=== PATIENT | female | born 1965 | race Caucasian/White ===

== ENCOUNTER 2018-07-07 10:25 | Emergency (ER) | payer OTHER ==
[2018-07-07 10:35] VITALS: TEMP 97.8; BMI 22.3
[2018-07-07] MEDS ORDERED: IBUPROFEN 600 MG TABLET (FP) PO ONE ×2 (10:41→10:44)
--- NOTE | 2018-07-07 11:02 | PDOC ---
History of Present Illness - General Chief Complaint: Injury Stated Complaint: FELL Time Seen by Provider: 07/07/18 10:32 History Source: Patient, Spouse ( at bedside.) Exam Limitations: No Limitations - History of Present Illness Initial Comments: HPI: 52 y/o female presenting to [facility] complaining of pain and difficulty moving the right shoulder forward after falling and striking it on the [place] shortly before arrival. Pt states she tripped and hit the area on a tree root. No LOC. Did not strike her head or neck. Pain radiates along the anterior portion of the arm. Is able to flex and extend the elbow and wrists. No bruising or bleeding. PCP: Dr. Maldonado Medical Hx: - Pt denies PMH. - Is taking estrogen and progesterone hormone replacements. Surgical Hx: - Pt denies PSH. Review of Systems: In addition to that documented in the HPI above, the additional ROS was obtained : Constitutional: Denies fevers or chills Head: Denies vision changes ENMT: Denies sore throat CV: Denies chest pain Resp: Denies SOB GI: Denies vomiting or diarrhea : Denies painful urination MSK: Per HPI Skin: Denies new rashes Neuro: Denies new numbness or tingling or weakness Endocrine: Denies polyuria Heme: Denies bleeding or bruising Physical Examination: Constitutional: Well-developed, well-nourished adult in no acute distress or obvious discomfort. Found standing upright next to hospital bed. Alert and oriented x4. Answered all questions appropriately and completely. Speech was non -labored, non-pressured. Head: Normocephalic. No obvious external signs of trauma. Cardiovascular / Chest: Regular rate and regular rhythm. No murmur, rubs, clicks , or gallops. Peripheral pulses: radial pulses full. No anterior chest wall tenderness. Respiratory: Breathing unlabored. Equal chest rise and fall. Clear to auscultation bilaterally. No stridor, no wheezing, no rhonchi. Neuro: Alert and oriented. Moving all four extremities spontaneously. MSK / Skin: Diffuse tenderness to right shoulder made worse by internal flexion. No obvious bony deformity to clavicle or AC joint; symmetrical when compared to left. Good active and passive ROM at elbow and wrists. [place] [employer] strength 5/5. No bruising or bleeding. Psych: Affect: tearful. Mood: normal. Procedures: Procedural Sedation / Shoulder Reduction PROCEDURE NOTE: Procedural Sedation PROCEDURE FLIGHT PARAMEDIC: Sourav Alford M.D. PGY1 Attending: Dr. Corona Indications: Anterior shoulder dislocation reduction Bly Protocol: a time out was performed and the correct patient and site were verified Consent: The risks and benefits of monitored anesthesia care, including the risk of aspiration, deep sedation requiring airway management including possible intubation, nausea/vomiting and the risks of not performing the procedure, including severe pain and inability to complete the procedure, were all discussed with the patient and . Pt requested the sign the consent form because she is right handed. The alternatives of performing the procedure, including local anesthesia and IV analgesia, also discussed. The patient has a ride home available. ASA Class: 1 Mallampati Score:1 Pre-anesthesia evaluation, including history, exam, and informed consent is documented in the note above. Monitoring: Continuous monitoring of heart rate, respiratory rate, pulse oximetry and ETCO2. Supplemental oxygen prior to and during procedure via nasal cannula. Resuscitation equipment available at the bedside during sedation. The patient received Ketamine and Propofol. Dosages were recorded on the sedation form. The patient was recovered from the sedation without complication or incident. Patient returned to pre-sedation level of awareness. The monitoring was discontinued at this time. Post-anesthesia evaluation: Respiratory function, cardiovascular function, and mental status did return to pre-anesthetic state. Pain was controlled. MDM: *Reviewed vital signs, nursing notes, and prior visit documentation (if available). 52 y/o female presenting with R shoulder pain and difficulty with internal rotation after falling while running. Vitals unremarkable for hypotension or tachycardia. Physical exam as described above. Suspect likely muscle strain versus AC dislocation. Low suspicion for fracture. Will obtain plain film to eval further. Ordered Motrin and Percocet for pain relief. Plain film revealed right anterior humeral head dislocation. No evidence of gross fracture. Pt consented for procedural sedation. Will use Ketamine and Propofol. Post-reduction film obtained and revealed correction of dislocation. No obvious fractures noted. Arm placed in sling. Ortho referral provided. Answered all questions. Provided return precautions. Pt expressed verbal understanding and agreement with plan to discharge home with outpatient follow up. Sourav Alford M.D., PGY1 Emergency Medicine Resident Past History - Past Medical History Allergies/Adverse Reactions: Allergies Allergy/AdvReac Type Severity Reaction Status Date / Time azithromycin [From Zithromax] Allergy Verified 07/07/18 10:32 Home Medications: Ambulatory Orders No Home Medications 0 dose .ROUTE UTDICT 10/16/12 COPD: No Other medical history: PT DENIES - Suicide/Smoking/Psychosocial Hx Smoking Status: No Smoking History: Never smoked Number of Cigarettes Smoked Daily: 0 Hx Alcohol Use: No Drug/Substance Use Hx: No *Physical Exam - Vital Signs Last Vital Signs Temp Pulse Resp BP Pulse Ox 97.8 F 62 18 117/76 100 07/07/18 10:27 07/07/18 10:27 07/07/18 10:27 07/07/18 10:27 07/07/18 10:27 ED Treatment Course - RADIOLOGY Radiology Studies Ordered: Category Date Time Status CLAVICLE-RIGHT SIDE [RAD] Stat Radiology 07/07/18 10:42 Ordered SHOULDER-RIGHT [RAD] Stat Radiology 07/07/18 10:42 Ordered - Medications Given in the ED: ED Medications Discontinued Medications Generic Name Dose Route Start Last Admin Trade Name Freq PRN Reason Stop Dose Admin Ibuprofen 600 mg 07/07/18 10:41 07/07/18 10:52 Motrin - PO 07/07/18 10:42 600 mg ONCE ONE Administration Oxycodone/Acetaminophen 1 combo 07/07/18 10:42 07/07/18 10:52 Percocet 5/325 - PO 07/07/18 10:43 1 combo ONCE ONE Administration *DC/Admit/Observation/Transfer Diagnosis at time of Disposition: Anterior dislocation of right humerus, initial encounter - Discharge Dispostion Disposition: HOME Condition at time of disposition: Good Decision to Admit order: No - Referrals Referrals: Ne Maldonado [Primary Care Provider] - Thiago Briscoe DO [Staff Physician] - - Patient Instructions Printed Discharge Instructions: DI for Shoulder Dislocation, DI for Moderate Sedation Additional Instructions: You were seen today for right shoulder pain. The xray showed you dislocated your shoulder. It was manually reduced. Keep it in the sling provided for the next week. You can take over the counter Tylenol or Advil as needed for pain. Take as directed on the package insert. Do not exceed the recommended dosage. If needed , you can alternate Tylenol and Advil every two hours, but do not exceed the maximum 24 hour dose. Follow up with an orthopedic doctor when the next week. I have placed a referral for you to see Dr. Briscoe. You will need to call to make an appointment. The number is included in this packet. A copy of todays results are attached to this packet. Take it to the appointment so your doctor can review them. Go to the nearest emergency department if your condition worsens or you feel like you need additional emergency evaluation. Print Language: LAO - Post Discharge Activity
--- NOTE | 2018-07-07 11:16 | PDOC ---
Attending Attestation - Resident Resident Name: Sourav Alford - ED Attending Attestation I have performed the following: I have examined & evaluated the patient, The case was reviewed & discussed with the resident, I agree w/resident's findings & plan, Exceptions are as noted - HPI HPI: 52 yo F presents s/p fall while running on a trail. Fall was mechanical. Landed on her right shoulder. Now with severe shoulder pain and unable to move the upper arm/shoulder. No other injuries. - Physicial Exam PE: GENERAL: Awake, alert, and fully oriented, in no acute distress HEAD: No signs of trauma EYES: PERRLA, EOMI, sclera anicteric, conjunctiva clear ENT: Auricles normal inspection, hearing grossly normal, nares patent, oropharynx clear without exudates. Moist mucosa NECK: Normal ROM, supple, no lymphadenopathy, JVD, or masses LUNGS: Breath sounds equal, clear to auscultation bilaterally. No wheezes, and no crackles HEART: Regular rate and rhythm, normal S1 and S2, no murmurs, rubs or gallops ABDOMEN: Soft, nontender, normoactive bowel sounds. No guarding, no rebound. No masses EXTREMITIES: R shoulder with dec ROM due to pain, elbow held at 90 degree angle. Distal N/V intact. Remainder of extremities with normal range of motion, no edema. No clubbing or cyanosis. No cords, erythema, or tenderness NEUROLOGICAL: Cranial nerves II through XII grossly intact. Normal speech, normal gait. Motor and sensation intact SKIN: Warm, Dry, normal turgor, no rashes or lesions noted. - Medical Decision Making Pt with anterior shoulder dislocation. Reduction to be attempted under conscious sedation. 07/07/18 12:44 XR reviewed. Successful reduction. Will monitor patient post-conscious sedation.
[2018-07-07] MEDS ORDERED: PROPOFOL 200 MG/20 ML VIAL IVPUSH ONE ×2 (11:25→12:55)
[2018-07-07] MEDS ORDERED: KETAMINE HCL 200 MG/20 ML VIAL IVPUSH ONE (11:26)
[2018-07-07] MEDS ORDERED: SODIUM CHLORIDE 0.9% 500 ML INFUS.BAG IV ONE (11:27)
[2018-07-07] MEDS ORDERED: KETAMINE HCL 200 MG/20 ML VIAL ONE (11:45)
[2018-07-07] MEDS ORDERED: PROPOFOL 20 ML ONE (11:45)
[2018-07-07 14:06] VITALS: BP 125/80; PULSE 56
== END 2018-07-07 13:25 | disposition home or self-care (01) ==
LOC: FER 10:25
PROC: 0PS5XZZ Reposition Right Scapula, External Approach (ICD-10-PCS; principal; 2018-07-07)
PROC: 3E0337Z Introduction of Electrolytic and Water Balance Substance into Peripheral Vein, Percutaneous Approach (ICD-10-PCS; 2018-07-07)
DX: S43.084A Other dislocation of right shoulder joint, initial encounter (principal); W18.39XA Other fall on same level, initial encounter; Y93.89 Activity, other specified; Y92.89 Other specified places as the place of occurrence of the external cause
CPT/HCPCS: 73000-TC-RT-FY; 73030-TC-RT-FY; 99283-25

== ENCOUNTER 2024-02-14 13:37 | Emergency (ER) | payer OTHER ==
[2024-02-14] MEDS ORDERED: IBUPROFEN 600 MG TABLET (FP) PO ONE (13:51)
[2024-02-14] MEDS ORDERED: SILVER SULFADIAZINE 1% TOP CREAM 50 GM JAR TP ONE (13:51)
[2024-02-14] MEDS: IBUPROFEN 600 MG TABLET (FP) PO ONE (13:56)
[2024-02-14] MEDS: SILVER SULFADIAZINE 1% TOP CREAM 50 GM JAR TP ONE (13:56)
[2024-02-14 13:58] VITALS: BP 126/79; PULSE 61; RESP 20; TEMP 98.4; BMI 24.0
== END 2024-02-14 14:06 | disposition home or self-care (01) ==
LOC: FER 13:37
DX: T23.252A Burn of second degree of left palm, initial encounter (principal)
CPT/HCPCS: 99283-25